=== PATIENT | male | born 1985 | race Caucasian/White ===

== ENCOUNTER 2023-03-27 07:57 | Day surgery (SDC) | payer BC ==
[2023-03-27] MEDS ORDERED: fentaNYL 50 MCG/ML SDV ONE (08:29)
[2023-03-27] MEDS ORDERED: Propofol 200 MG/20 ML SDV ONE ×2 (08:29→09:50)
[2023-03-27] MEDS ORDERED: Midazolam 1 MG/ML 2 ML SDV ONE (08:29)
[2023-03-27] MEDS ORDERED: Sodium Chloride 0.9% 1,000 ML IV SCH (09:00)
== END 2023-03-27 10:54 | disposition home or self-care (01) ==
LOC: JP.SDS 07:57
PROVIDERS: ATTEND Surgery
DX: Z12.11 Encounter for screening for malignant neoplasm of colon (principal); E78.5 Hyperlipidemia, unspecified; Z88.2 Allergy status to sulfonamides
CPT/HCPCS: 45378; J2250; J2704; J3010; J7030